=== PATIENT | female | born 1935 | race Caucasian/White ===

== ENCOUNTER 2021-02-07 16:25 | Emergency (ER) | payer MEDICARE, BC ==
[~2021-02-07] VITALS: Ht 154.9 cm; Wt 72.6 kg
--- NOTE | 2021-02-07 18:09 | NUR ---
Patient discharged to home in stable condition. Written and verbal after care instructions given. Patient verbalizes understanding of instructions. Stressed follow up or return to ER for worsening s/s.
[2021-02-07] MEDS ORDERED: TRIA15OI9 TP (18:11)
== END 2021-02-07 18:14 | disposition home or self-care (01) ==
LOC: ER 16:29
DX: L03.115 Cellulitis of right lower limb (principal); Z88.6 Allergy status to analgesic agent; Z88.0 Allergy status to penicillin; Z88.2 Allergy status to sulfonamides
CPT/HCPCS: A4663